=== PATIENT | female | born 1990 ===

== ENCOUNTER → 2016-11-15 | Outpatient (CLI) | payer BC ==
[2016-11-15 11:55] LABS: CH 30.9; CHCM 33.9; HCT 35.2 % (34.0-46.0); HDW 2.39; HGB 11.7 gm/dL (11.4-16.0); MCH 30.4 pg (25.0-35.0); MCHC 33.3 g/dL (31.0-37.0); MCV 91.4 fL (80.0-100.0); Mean Platelet Volume 7.6; RBC 3.85 m/uL (3.80-5.40); RDW 14.6 % (11.5-15.5); WBC 9.4 k/uL (3.8-10.6)
[2016-11-15 12:14] LABS: Glucose 92 mg/dL (74-99); Non-African American GFR(MDRD) >60 (>60 ml/min/1.73 sqM)
[2016-11-15 12:45] LABS: Hepatitis B Surface Ag Index 0.06
== END | disposition home or self-care (01) ==
LOC: LABWHC1 11:25
PROVIDERS: ATTEND Obstetrics & Gynecology
DX: Z34.01 Encounter for supervision of normal first pregnancy, first trimester (principal)
CPT/HCPCS: 36415; 82565; 82947; 85027; 86762; 86780; 86850; 86900; 86901; 87340